=== PATIENT | male | born 1945 | race Caucasian/White ===

== ENCOUNTER → 2021-08-24 09:34 | Outpatient (CLI) | payer MEDICARE, SELFPAY ==
[2021-08-24 12:24] LABS: COVID19 -Nasal RAPID Negative (Negative)
== END ==
PROVIDERS: Family Provider Family Medicine; PCP Family Medicine; Visit Provider Family Medicine Sleep Medicine
DX: Z20.822 Contact with and (suspected) exposure to COVID-19 (principal)
CPT/HCPCS: 87635; C9803

== ENCOUNTER 2021-08-26 09:41 | Day surgery (SDC) | payer MEDICARE, OTHER, SELFPAY ==
--- NOTE | 2021-08-26 | PATH_ITS ---
[facility] Accession Number: [id number] . 01 Material submitted: . PART A: colon - AT 50 COLON POLYP PART B: colon - AT 30 COLON POLYP . 02 Diagnosis: A. Colon Polyp at 50 cm, Biopsy: Serrated lesion, favor sessile serrated adenoma. . B. Colon Polyp at 30 cm, Biopsy: Colonic mucosa with focal mucosal hyperplasia. Negative for dysplasia or malignancy. MRV 08/28/2021 1412 Local . 02 Electronically signed: . Yahir Gonzales MD, PhD, Pathologist NPI- [id number] . 01 Gross description: . Part A: AT 50 COLON POLYP: Received in formalin are 2 fragment(s) of bess, soft tissue measuring 0.7 x 0.2 x 0.1 cm to 0.4 x 0.3 x 0.2 cm submitted entirely in 1 cassette(s) Part B: AT 30 COLON POLYP: Received in formalin are 2 fragment(s) of bess, soft tissue measuring 0.3 x 0.2 x 0.1 cm to 0.2 x 0.2 x 0.2 cm submitted entirely in 1 cassette(s) /CPE 08/27/2021 1315 Local . 02 Pathologist provided ICD-10: D12.6, K63.5 . 02 CPT . 065424, 586347 Specimen Comment: A courtesy copy of this report has been sent to [phone] Performed at: 01 [facility] [address] [id number] MD Josh Hazel MD Phone: [phone] Performed at: 02 [facility] [address] [place], [place] [id number] MD Margot Frank MD Phone: [phone]
[2021-08-26 10:06] VITALS: BP 159/96; PULSE 105; RESP 18; TEMP 36.4; O2SAT 99; BMI 26.6
--- NOTE | 2021-08-26 11:09 | PM.HP.1 ---
History of Present Illness History of Present Illness Date Patient Seen: 08/26/21 Chief complaint: DX COLONOSCOPY Narrative: History of colon polyps Patient History Medical History (Updated 08/26/21 @ 08:20 by Yahir Gentile RN) Colon polyps Family & Social History Social History: household members spouse Tobacco & Substance use: Smoking Status Never smoker alcohol intake frequency a few times a week Substance Use Type does not use Meds Home Medications and Allergies Home Medications Medication Instructions Recorded Confirmed Type tamsulosin 0.4 mg capsule 0.4 mg PO DAILY 08/25/21 08/26/21 History Allergies Allergy/AdvReac Type Severity Reaction Status Date / Time nitrous oxide AdvReac Verified 08/26/21 09:59 Exam Vital Signs (past 8 hours): - 08/26/21 10:06 Temperature 97.6 F Pulse Rate 105 H Respiratory Rate 18 Blood Pressure 159/96 H Pulse Oximetry 99 Oxygen Delivery Method Room Air Narrative Exam Narrative: Oropharynx free of lesions Chest clear to auscultation percussion Cardiac exam reveals no S3 or murmur Assessment & Plan Assessment & Plan narrative: History of adenomatous colon polyps need for follow-up colonoscopy. Delaying procedure may result in advancement of disease. Risks, benefits, alternatives have been explained. Time Spent With Patient Critical Care time: I spent a total of [] minutes of critical care time on this patient's care today; this time is exclusive of procedural time.
--- NOTE | 2021-08-26 11:10 | PM.OP.COLON ---
Operative Date/Time/Diagnoses Date of procedure: 08/26/21 Pre-op diagnosis: See indication and findings Procedure & Clinicians Study performed: Colonoscopy Indications: History of adenomatous colon polyps last colonoscopy 2016 Procedure Notes Procedure in detail: After informed consent was obtained patient was placed in left lateral decubitus position. The video colonoscope was introduced the rectum and slowly advanced to the cecum. Preparation was good. On slow withdrawal mucosa was carefully examined. The scope was removed. The patient tolerated procedure well. Blood loss none Complications none Sedation mac Findings 1. 1 cm flat polyp at 50 cm/distal transverse colon. This was cold snared and removed completely 2. 4 mm sessile polyp at 30 cm. This was Jumbo biopsy removed completely 3. Extensive sigmoid diverticulosis 4. Otherwise negative colonoscopy to cecum Will be in touch regarding biopsies and pathology but I expect he will need follow-up colonoscopy in 5 years as he turns 81.
[2021-08-26 11:45] VITALS: BP 109/75; PULSE 101; RESP 16; TEMP 36.4; O2SAT 94
[2021-08-26 11:46] VITALS: BP 116/74; PULSE 98; RESP 12; O2SAT 95
[2021-08-26 11:56] VITALS: BP 139/96; PULSE 96; RESP 14; O2SAT 96
[2021-08-26 12:01] VITALS: BP 124/82; PULSE 89; RESP 15; O2SAT 95
--- NOTE | 2021-08-26 12:05 | SUR.PHASEII ---
Discharge instructions reviewed with pt and he verbalized understanding. Pt tolerating water with no c/o nausea noted.
[2021-08-26 12:11] VITALS: BP 128/91; PULSE 91; RESP 15; O2SAT 96
== END 2021-08-26 12:25 | disposition home or self-care (01) ==
PROVIDERS: Family Provider Family Medicine; PCP Internal Medicine; Referring Provider Internal Medicine Gastroenterology; Visit Provider Internal Medicine Gastroenterology
PROC: 0DJD8ZZ Inspection of Lower Intestinal Tract, Via Natural or Artificial Opening Endoscopic (ICD-10-PCS; CPT 45378; principal; 2021-08-26 11:30)
DX: Z12.11 Encounter for screening for malignant neoplasm of colon (principal); Z86.010 Personal history of colon polyps; K57.30 Diverticulosis of large intestine without perforation or abscess without bleeding; D12.6 Benign neoplasm of colon, unspecified
CPT/HCPCS: 45385; 45380; J2704